=== PATIENT | female | born 1960 | race Caucasian/White ===

== ENCOUNTER 2024-02-03 18:12 | Emergency (ER) | payer BC, SELFPAY ==
[2024-02-03 18:14] VITALS: BP 166/78
[2024-02-03 18:42] LABS: % Basophils 0.7 % (0-2); % Eosinophils 1.3 % (0-6); % Immature Granulocytes 0.2 % (0-0.5); % Lymphocytes 29.8 % (20.5-51.1); % Monocytes 6.7 % (1.7-9.3); % Neutrophils 61.3 % (42.2-75.2); Absolute Basophils 0.1 10^3/uL (0-0.2); Absolute Eosinophils 0.1 10^3/uL (0-0.7); Absolute Lymphocytes 2.7 10^3/uL (1.2-3.4); Absolute Monocytes 0.6 10^3/uL (0.1-0.6); Absolute Neutrophils 5.5 10^3/uL (1.4-6.5); Hematocrit 37.2 % (37.0-47.0); Hemoglobin 12.5 g/dL (12.0-16.0); Mean Corp Hgb Conc. 33.6 g/dL (33.0-37.0); Mean Corpuscular Hgb 28.3 pg (27.0-31.0); Mean Corpuscular Volume 84.4 fL (81.0-99.0); Mean Platelet Volume 10.8 fL (7.4-10.4); Nucleated Red Blood Cells % 0 %; Platelet Count 267 10^3/uL (130-400); Red Blood Cell Count 4.41 10^6/uL (4.20-5.40); Red Cell Dist. Width 12.4 % (11.5-14.5); White Blood Cell Count 8.9 10^3/uL (4.8-10.8)
[2024-02-03 18:57] LABS: ALT (SGPT) 29 U/L (0-35); AST (SGOT) 34 U/L (14-36); Albumin 4.3 g/dl (3.5-5.0); Alkaline Phosphatase 110 U/L (38-126); Blood Urea Nitrogen 14 mg/dl (7-17); Calcium 9.7 mg/dl (8.4-10.2); Carbon Dioxide 30 mmol/L (22-30); Chloride 101 mmol/L (98-107); Glucose 123 mg/dl (70-99); Potassium 3.8 mmol/L (3.5-5.1); Sodium 138 mmol/L (135-145); Total Bilirubin 0.6 mg/dl (0.2-1.3); Total Protein 6.9 g/dl (6.3-8.2); eGFR > 60.00
[2024-02-03 19:06] LABS: Troponin I < 0.012 ng/ml
--- NOTE | 2024-02-03 19:37 | ED.GENMED ---
History of Present Illness
General
Chief Complaint: Chest Pain
Time Seen by Provider: 02/03/24 19:37
History of Present Illness
History of Present Illness:
HPI: At about 5 PM tonight, the patient left a diner and suddenly had severe sharp stabbing pain. This was intermittent in nature. EMS was called. notes that she is under a lot of stress (upcoming son's wedding and other issues). She
denies ever having any shortness of breath. Overall she currently feels grooved and just has some intermittent 'twinges'. She never had any pressure sensation. She was never diaphoretic.
EXAM:
GENERAL: Well appearing in no distress
HEENT: Moist oral mucosa
CARDIOVASCULAR: No murmurs, normal heart rate, regular rhythm, mild anterior left-sided chest wall tenderness
PULMONARY: No respiratory distress, breath sounds are clear and equal
ABDOMEN: Soft with no peritoneal signs, no tenderness
NEUROLOGIC: Excellent strength all extremities, no coordination deficits
PSYCHIATRIC: Appropriate mental status, normal insight and judgement
EXTREMITIES: Nontender, no edema, moves all extremities equally
SKIN: No rash, no lesions
TIME OF INITIAL ENCOUNTER: 7:40 PM
NUMBER AND COMPLEXITY OF PROBLEMS ADDRESSED AT THE ENCOUNTER
� Chronic conditions affecting care: Has had bowel obstruction
� Acute Exacerbation and/or Progression of Chronic Illness: This is an acute problem
� Differential Diagnosis includes: Chest wall pain, pneumothorax, PE, ACS very unlikely given the description of the pain
AMOUNT AND/OR COMPLEXITY OF DATA TO BE REVIEWED AND ANALYZED
� I performed an independent evaluation of and my interpretation is:
EKG: Sinus 90, normal axis, nonspecific ST abnormality
CT:
X-rays: Chest x-ray shows no acute abnormality
Laboratory Studies: Troponin less than 0.012, chemistries and CBC unremarkable, second troponin also negative, D-dimer effectively rules out PE
Other:
� Review of other/old records: The patient has CTA chest in 2017 which was negative for PE
� Clinical information was obtained by an independent historian: I spoke to at bedside
� Prescriptions/Medications Considered but not given:
� Further testing considered but not performed:
RISK OF COMPLICATIONS AND/OR MORBIDITY OR MORTALITY OF PATIENT MANAGEMENT
� Social determinants of health affecting care: Lives at home
� Discussion with other providers:
� Escalation of care including admission/observation vs risk of discharge considered: The patient was given Toradol for pain. She has been having some intermittent episodes of stabbing pain to the left anterior chest wall
throughout her stay in the ED. She has had several EKGs all of which have been unremarkable. On reassessment at 9:30 PM, the patient overall feels significant proved. Unclear etiology of her earlier symptoms but I suspect more of a
musculoskeletal etiology as her symptoms were stabbing and somewhat pleuritic in nature. No evidence for PE or DVT. Overall has improved with NSAID here. Given her age, I do recommend that he follows up with inspector of weights and measures as well.
Past History
Past History
ED Past Medical History: None
ED Past Surgical History: Tonsilectomy and Other (SBO from adhesions)
Social History
Tobacco: Non-smoker
Alcohol: Occasional
Drug: None
Personal:
Living: with family
Employment: Employed
Family History
Family History: CAD
Phy Exam
Physical Exam
Physical Exam:
See HPI
Scores
Heart Score for Chest Pain Patients
STEMI patient?: Not applicable
Course
Orders/Labs/Results
Orders:
Orders
02/03/24 18:17
Electrocardiogram (*1) Urgent
Reason for Study: Chest Pain
EKG- Treatment ONCE
02/03/24 18:36
Complete Blood Count/With Diff Urgent
Comprehensive Metabolic Panel Urgent
Troponin I Urgent
02/03/24 19:48
0.9% Sodium Chloride 1000 ml [Nss] 1,000 ml IV BOLUS
Ketorolac [Toradol] 15 mg IV NOW STA
02/03/24 19:49
CR Chest - 2 Views Urgent
Comment:
Reason For Exam: cp left
02/03/24 19:59
EKG [Electrocardiogram (*1)] Urgent
Reason for Study: Other
Other Reason for Exam: with repeat trop
EKG- Treatment ONCE
02/03/24 20:07
D-Dimer Urgent
Troponin I Urgent
02/03/24 20:53
EKG [Electrocardiogram (*1)] Urgent
Reason for Study: Chest Pain
EKG- Treatment ONCE
Abnormal Lab Results
02/03/24
18:36
MPV 10.8 H fL
(7.4-10.4)
Glucose 123 H mg/dl
(70-99)
02/03/24 18:36
02/03/24 18:36
Vital Signs
Initial and Last Documented VS:
Initial Vital Signs
Temp Pulse Resp BP Pulse Ox
98.2 F 91 18 166/78 99
02/03/24 18:14 02/03/24 18:14 02/03/24 18:14 02/03/24 18:14 02/03/24 18:14
Last Documented Vital Signs
Temp Pulse Resp BP Pulse Ox
98.2 F 74 13 166/78 99
02/03/24 18:14 02/03/24 20:15 02/03/24 20:15 02/03/24 18:14 02/03/24 20:52
*Critical Care Note
Total Time (30-74mins, 75-104mins- exclusive of procedures): Not Applicable
ED Attending Note
-
Portions of this chart may have been created with voice recognition software.� Occasional wrong word or��sound alike� substitutions may have occurred due to the inherent limitations of voice recognition software.
Discharge Plan
Departure
Patient Disposition: Home (Routine Discharge)
Date of Disposition: 02/03/24
Time of Disposition: 21:29
Patient with high blood pressure during this ER visit?: Yes
Discharge Problem:
Chest pain
Instructions: Chest Pain DCA Follow Up
Prescriptions:
No Action
Aspirin Low Strength Chewable:
81 mg PO ONCE
gabapentin 300 MG capsule
1 tab PO HS PRN (Reason: insomnia)
ibuprofen 600 MG tablet
600 mg PO Q6 PRN (Reason: pain) Qty: 20 0RF
Referrals:
Kati Cowart DO [Family Provider] -
Mark Rowe MD [Active] - Follow up in 2-3 days
Activity Restrictions/Additional Instructions:
Cardiac blood work and EKGs are unremarkable. D-dimer screening test for blood clot is negative for blood clot. Chemistry levels are normal. Chest x-ray is clear. Although we see no signs of heart attack at this point, it is you could have
coronary disease therefore I recommend you follow-up with a inspector of weights and measures such as Dr. Rowe. Please follow-up with your primary care doctor as well. I recommend 3-4 [id number] ibuprofen (Motrin) every 8 hours with food for a few days. Return
here if worse.
Interventions
Interventions:
*Risk Screen - Suicide Last Done: 02/03/24 18:14
*General Assessment Last Done: 02/03/24 18:14
*Neglect/Abuse Screening Last Done: 02/03/24 18:14
*ED COVID-19 Vaccine History Last Done: 02/03/24 18:14
ED- Cardiac Assessment Last Done: 02/03/24 20:54
Discharge Date and Time
Print Language: YI
[2024-02-03] MEDS: NSS 1000 IV (20:08)
[2024-02-03] MEDS: TORADOL 15 MG IV (20:08)
[2024-02-03 20:40] LABS: D-Dimer < 0.27 ug/mlFEU (0.00-0.50)
[2024-02-03 20:43] LABS: Troponin I < 0.012 ng/ml
[2024-02-03 20:53] VITALS: BMI 25.2
[2024-02-03 21:00] VITALS: BP 131/66
== END 2024-02-03 22:00 | disposition home or self-care (01) ==
LOC: EMR 18:12
PROVIDERS: Emergency Medicine; EMERGENCY PHYSICIAN Emergency Medicine; FAMILY PHYSICIAN Family Medicine
DX: R07.89 Other chest pain (principal); Z82.49 Family history of ischemic heart disease and other diseases of the circulatory system
CPT/HCPCS: 99283; 96374; 96361; 71046; 80053; 84484; 85025; 85379; 93005

== ENCOUNTER → 2024-04-11 12:16 | Outpatient (REF) | payer BC, SELFPAY | LOC: RCS 12:16 | PROVIDERS: ATTENDING PHYSICIAN Internal Medicine Cardiovascular Disease; FAMILY PHYSICIAN Family Medicine | DX: R07.9 Chest pain, unspecified (principal) | CPT/HCPCS: 93017; 93350 ==

== ENCOUNTER → 2024-09-12 17:27 | Outpatient (REF) | payer BC, SELFPAY | LOC: WDC 17:27 | PROVIDERS: ATTENDING PHYSICIAN Family Medicine | DX: Z12.31 Encounter for screening mammogram for malignant neoplasm of breast (principal) | CPT/HCPCS: 77063; 77067 ==

== ENCOUNTER 2024-11-22 09:43 | Emergency (ER) | payer BC, SELFPAY ==
[2024-11-22 09:50] VITALS: BP 200/102
[2024-11-22 11:17] VITALS: BP 155/79
[2024-11-22 11:24] VITALS: BMI 25.5
--- NOTE | 2024-11-22 11:30 | ED.GENMED ---
History of Present Illness
General
Chief Complaint: DVT/Possible Blood Clot
Source: patient
Exam Limitations: none
Time Seen by Provider: 11/22/24 11:22
Nursing documentation reviewed up to this point in time: agreed with
History of Present Illness
History of Present Illness:
64 yo female w h/o IBS, small bowel resection due to adhesions presents for left leg swelling, intermittent dizziness, intermittent palpitations and left upper chest 'tightening,' for the past 2 weeks. States the chest pains are sometimes
''tightening, sometimes sharp and they only last several seconds. No aggravating or relieving factors. She states she has chronic mild bilateral lower extremity swelling but yesterday noted left lower leg to be a little more swollen than usual and
also had a rash on it. She states the rash is gone today but the lower leg is a little swollen.
She denies SOB, N/V/D, she has chronic constipation nothing new here.
Last episode of dizziness was fleeting and while she was sitting in the chair waiting outside of ultrasound.
Past History
Past History
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
ED Past Surgical History: Bowel resection (from adhesions) and Tonsilectomy
Social History
Tobacco: Non-smoker
Alcohol: Occasional
Drug: None
Personal:
Living: with family
Employment: Employed
Family History
Family History: CAD
Review of Systems
Review of Systems
Allergies reviewed?: Yes
All Other Systems: ROS reviewed and negative except as documented in HPI and ROS
Constitutional: Denies fever or fatigue
Respiratory: Denies cough or trouble breathing
Cardiac: Reports chest pain; Denies diaphoresis, palpitations or syncope
ABD/GI: Reports constipated; Denies abdominal pain, nausea, vomiting, diarrhea or anorexia
: Denies dysuria
Musculoskeletal: Reports other (more than usual left lower leg swelling noted yesterday)
Skin: Reports no symptoms
Neurological: Reports dizzy (intermittent fleeting dizziness, no aggravating factors. ); Denies headache, weakness or numbness
Phy Exam
Physical Exam
Physical Exam:
GENERAL: No acute distress. A&Ox3.
CONSTITUTIONAL: Afebrile.
EYES: clear, conjunctivae normal
ENMT: moist mucus membranes, Pharynx nl
RESPIRATORY: Regular respirations, nonlabored, lungs clear.
CARDIOVASCULAR: Regular rate and rhythm, no murmurs, no rubs.
GI: Soft, nontender, normal BS
MUSCULOSKELETAL: Moves with ease. Well perfused. Pt thinks left lower leg a little more swollen than usual, no swelling of either leg noted, no pitting. Distal n/v intact.
SKIN: Warm, dry, pink
PSYCH: Normal mood and affect. Well kept, interactive and appropriate
NEUROLOGIC: Awake, alert and oriented. No focal neurological deficits
Course
Orders/Labs/Results
Orders:
Orders
11/22/24 09:54
Electrocardiogram (*1) Urgent
Reason for Study: Chest Pain
US Legs, Left [US Periph Venous LOWER Ext LT] Urgent
Comment:
Reason For Exam: r/o DVT leg swollen
11/22/24 09:55
EKG- Treatment ONCE
11/22/24 11:24
CMP [Comprehensive Metabolic Panel] Urgent
Complete Blood Count/With Diff Urgent
TSH Reflex To Free T4 Urgent
Comment: ADD ON
Troponin I Urgent
11/22/24 12:02
Add On- LAB Urgent
Tests Added?: TSH reflex T4
11/22/24 12:03
Orthostatic VS- Treatment ONCE
Abnormal Lab Results
11/22/24
11:24
MCHC 32.8 L g/dL
(33.0-37.0)
MPV 10.8 H fL
(7.4-10.4)
Chloride 110 H mmol/L
(98-107)
11/22/24 11:24
11/22/24 11:24
Vital Signs
Initial and Last Documented VS:
Initial Vital Signs
Temp Pulse Resp BP Pulse Ox
98 F 101 20 200/102 100
11/22/24 09:50 11/22/24 09:50 11/22/24 09:50 11/22/24 09:50 11/22/24 09:50
Last Documented Vital Signs
Temp Pulse Resp BP Pulse Ox
98 F 69 20 151/65 100
11/22/24 09:50 11/22/24 12:00 11/22/24 12:00 11/22/24 12:00 11/22/24 12:00
MDM/Problems Addressed
Differential Diagnosis Includes:
DVT, CT, musculoskeletal CP
MDM/Problems Addressed:
64 yo female w h/o IBS, small bowel resection due to adhesions presents for left leg swelling, intermittent dizziness, intermittent palpitations and left upper chest 'tightening,' for the past 2 weeks. States the chest pains are sometimes
''tightening, sometimes sharp and they only last several seconds. No aggravating or relieving factors. No recollection of overuse or injury. She states she has chronic mild bilateral lower extremity swelling but yesterday noted left lower leg to
be a little more swollen than usual and also had a rash on it. She states the rash is gone today but the lower leg is a little swollen.
She denies SOB, N/V/D, she has chronic constipation nothing new here.
Last episode of dizziness was fleeting and while she was sitting in the chair waiting outside of ultrasound.
Had normal stress echo 03/2024
12:00 p.m.
CBC normal
CMP normal
Troponin normal
EKG NSR
Ultrasound negative for DVT
Nothing worrisome in workup here today
Pt reassured
Referred to Chest pain hotline
*EKG
EKG Intrepretation Date: 11/22/24
Interpretation: abnormal
Comparison EKG: no changes
Heart Rate: 71
Rate: normal
Rhythm: sinus arrhythmia
[place]: normal axis
Interval: normal interval
QRS Pattern: normal QRS
Ischemia: no ischemia
*Critical Care Note
Total Time (30-74mins, 75-104mins- exclusive of procedures): Not Applicable
ED Attending Note
-
Portions of this chart may have been created with voice recognition software.� Occasional wrong word or��sound alike� substitutions may have occurred due to the inherent limitations of voice recognition software.
Discharge Plan
Departure
Patient Disposition: Home (Routine Discharge)
Date of Disposition: 11/22/24
Time of Disposition: 12:35
Patient with high blood pressure during this ER visit?: No
Condition: Good
Discharge Problem:
Atypical chest pain, Leg swelling
Instructions: Chest Pain DCA Follow Up
Prescriptions:
No Action
Aspirin Low Strength Chewable:
81 mg PO ONCE
gabapentin 300 MG capsule
1 tab PO HS PRN (Reason: insomnia)
ibuprofen 600 MG tablet
600 mg PO Q6 PRN (Reason: pain) Qty: 20 0RF
Referrals:
Pollo Butt MD [Active] - Next open appointment
Kati Cowart DO [Family Provider]
Activity Restrictions/Additional Instructions:
As we discussed, nothing worrisome in your workup here today. Specifically no sign of a heart attack.
I sent your information to the chest pain hotline, someone should be calling you in 1-2 days for appointment.
Interventions
Interventions:
*Risk Screen - Suicide Last Done: 11/22/24 09:50
*General Assessment Last Done: 11/22/24 09:50
*Neglect/Abuse Screening Last Done: 11/22/24 09:50
*Nursing Disposition Last Done: 11/22/24 12:54
ED- Cardiac Assessment Last Done: 11/22/24 11:40
ED- Pulmonary Assessment Last Done: 11/22/24 11:40
ED-Peripheral Vascular Assessment Last Done: 11/22/24 11:40
ED-Skin Assessment Last Done: 11/22/24 11:40
Discharge Date and Time
Discharge Date/Time: 11/22/24 12:55
Print Language: MAORI
[2024-11-22 11:32] LABS: % Basophils 0.9 % (0-2); % Eosinophils 0.7 % (0-6); % Immature Granulocytes 0.2 % (0-0.5); % Lymphocytes 28.4 % (20.5-51.1); % Monocytes 6.6 % (1.7-9.3); % Neutrophils 63.2 % (42.2-75.2); Absolute Basophils 0.1 10^3/uL (0-0.2); Absolute Lymphocytes 1.6 10^3/uL (1.2-3.4); Absolute Monocytes 0.4 10^3/uL (0.1-0.6); Absolute Neutrophils 3.4 10^3/uL (1.4-6.5); Hematocrit 38.7 % (37.0-47.0); Hemoglobin 12.7 g/dL (12.0-16.0); Mean Corp Hgb Conc. 32.8 g/dL (33.0-37.0); Mean Corpuscular Hgb 28.8 pg (27.0-31.0); Mean Corpuscular Volume 87.8 fL (81.0-99.0); Mean Platelet Volume 10.8 fL (7.4-10.4); Nucleated Red Blood Cells % 0 %; Platelet Count 221 10^3/uL (130-400); Red Blood Cell Count 4.41 10^6/uL (4.20-5.40); Red Cell Dist. Width 12.1 % (11.5-14.5); White Blood Cell Count 5.5 10^3/uL (4.8-10.8)
[2024-11-22 11:53] LABS: ALT (SGPT) 33 U/L (0-35); AST (SGOT) 29 U/L (14-36); Albumin 4.6 g/dl (3.5-5.0); Alkaline Phosphatase 98 U/L (38-126); Blood Urea Nitrogen 12 mg/dl (7-17); Calcium 9.6 mg/dl (8.4-10.2); Carbon Dioxide 29 mmol/L (22-30); Chloride 110 mmol/L (98-107); Estimated Creatinine Clearance 69 ml/min; Glucose 97 mg/dl (70-99); Potassium 4.3 mmol/L (3.5-5.1); Sodium 143 mmol/L (135-145); Total Bilirubin 0.5 mg/dl (0.2-1.3); Total Protein 7.3 g/dl (6.3-8.2); eGFR > 60.00
[2024-11-22 11:57] LABS: Troponin I < 0.012 ng/ml
[2024-11-22 12:00] VITALS: BP 151/65
[2024-11-22 16:18] LABS: TSH Reflex To Free T4 1.45 uIU/ml (0.47-4.68)
== END 2024-11-22 12:55 | disposition home or self-care (01) ==
LOC: EMR 09:43
PROVIDERS: EMERGENCY PHYSICIAN Student in an Organized Health Care Education/Training Program; FAMILY PHYSICIAN Family Medicine
DX: R07.89 Other chest pain (principal); R22.42 Localized swelling, mass and lump, left lower limb
CPT/HCPCS: 99285; 80053; 84443; 84484; 85025; 93005; 93971